=== PATIENT | male | born 1975 | race African-American/Black ===

== ENCOUNTER 2017-01-26 13:44 | Emergency (ER) | payer SELFPAY ==
[~2017-01-26] VITALS: Ht 180.3 cm; Wt 97.5 kg
[~2017-01-26 13:44] MED LIST: ATARAX 25MG25 MG/TAB PO; FLEXERIL10 MG PO; MEDROL 4MG DOSPA4 MG PO; NO HOME MEDICATIONS; NORCO 325 MG-101 TAB; PERCOCET 325 MG1 TA2 PO; SOMA350 MG PO
[2017-01-26 13:47] VITALS: BP 141/79; TEMP 98.2
[2017-01-26 14:35] VITALS: PULSE 66
== END 2017-01-26 14:40 | disposition home or self-care (01) ==
LOC: COL.ER 13:44
DX: Z00.00 Encounter for general adult medical examination without abnormal findings (principal); F17.210 Nicotine dependence, cigarettes, uncomplicated

== ENCOUNTER 2017-02-13 08:20 | Emergency (ER) | payer SELFPAY ==
[~2017-02-13] VITALS: Ht 180.3 cm; Wt 100.0 kg
[2017-02-13] MEDS ORDERED: ZOFRAN ODT4 MG PO (08:54)
[2017-02-13 09:05] VITALS: BP 135/95; PULSE 80; TEMP 99.3
== END 2017-02-13 09:24 | disposition home or self-care (01) ==
LOC: COL.ER 08:20
DX: K52.9 Noninfective gastroenteritis and colitis, unspecified (principal)

== ENCOUNTER 2017-04-20 08:46 | Emergency (ER) | payer SELFPAY ==
[~2017-04-20] VITALS: Ht 180.3 cm; Wt 100.0 kg
[~2017-04-20 08:46] MED LIST changes: +ZOFRAN ODT4 MG PO
[2017-04-20 08:48] VITALS: BP 137/87; TEMP 98.9
[2017-04-20 09:25] VITALS: PULSE 68
== END 2017-04-20 09:30 | disposition home or self-care (01) ==
LOC: COL.ER 08:46
DX: Z02.89 Encounter for other administrative examinations (principal); V49.60XA Unspecified car occupant injured in collision with unspecified motor vehicles in traffic accident, initial encounter; Y92.410 Unspecified street and highway as the place of occurrence of the external cause

== ENCOUNTER 2018-09-17 09:31 | Emergency (ER) | payer SELFPAY ==
[~2018-09-17] VITALS: Ht 180.3 cm; Wt 95.5 kg
[2018-09-17 10:05] VITALS: BP 130/74; PULSE 75; TEMP 98
== END 2018-09-17 10:05 | disposition home or self-care (01) ==
LOC: COL.ER 09:31
DX: R19.7 Diarrhea, unspecified (principal); R11.2 Nausea with vomiting, unspecified; F17.210 Nicotine dependence, cigarettes, uncomplicated